=== PATIENT | male | born 1970 | race Caucasian/White ===

== ENCOUNTER → 2017-03-28 | Outpatient (CLI) | payer OTHER ==
[~2017-03-28] MED LIST: BENA20TA2 PO; CLON1TAB3 PO; HYDR12.53 PO; ROPI0.5T PO; VENL75CA PO
--- NOTE | 2017-03-29 07:32 | RAD ---
2 view chest 03/28/2017 Clinical indication: Cough and shortness of breath. Comparison: CT chest 03/04/2016, 2 view chest 02/26/2016. Findings: Cardiac and mediastinal silhouettes are unremarkable. No pleural effusion, pneumothorax or focal consolidation. Impression: No acute cardiopulmonary abnormality.
== END | disposition home or self-care (01) ==
LOC: RAD 19:29
PROVIDERS: ATTEND Nurse Practitioner Family
DX: R05 Cough (principal)
CPT/HCPCS: 71046

== ENCOUNTER → 2019-01-24 | Outpatient (CLI) | payer BC ==
[~2019-01-24] MED LIST changes: -BENA20TA2 PO; +BENA20TA4 PO; +CLON1TAB11 PO; -CLON1TAB3 PO; -HYDR12.53 PO; +HYDR12.572 PO
--- NOTE | 2019-01-24 12:35 | RAD ---
AP and Lateral Views of the Chest 01/24/2019 12:00 AM Indication: Shortness of breath. Cough. Comparison: Chest radiograph of March 28, 2017 Findings: Minimal linear scarring is seen in the lung bases, unchanged. No new focal infiltrate is identified.. The cardiomediastinal silhouette is within normal limits. There is no evidence of pneumothorax or pleural effusion. No acute osseous abnormalities are identified. Impression: No evidence of acute cardiopulmonary process. Electronically signed by: Yohan Dove MD (01/24/2019 12:32 PM) [id number]
== END | disposition home or self-care (01) ==
LOC: DXRAD 11:55
PROVIDERS: ATTEND Registered Nurse
DX: J98.4 Other disorders of lung (principal)
CPT/HCPCS: 71046

== ENCOUNTER → 2021-03-25 | Outpatient (CLI) | payer BC ==
[~2021-03-25] MED LIST changes: -BENA20TA4 PO; +BENA20TA84 PO
--- NOTE | 2021-03-25 08:47 | RAD ---
Chest, PA and Lateral: Technique: PA and lateral views of the chest were obtained. History: Upper respiratory infection. Comparison: 01/24/2019. Findings: The heart and pulmonary vasculature appear within normal limits. Faint airspace opacities bibasilar lungs likely atelectasis or infiltrates.. The pleural margins are clear. Impression: Faint airspace opacities bibasilar lungs likely atelectasis or infiltrates.. Electronically signed by: Azeem Granger MD (03/25/2021 8:45 AM) [id number]
== END ==
LOC: RAD 08:28
PROVIDERS: ATTEND Nurse Practitioner Family
DX: J06.9 Acute upper respiratory infection, unspecified (principal)
CPT/HCPCS: 71046